=== PATIENT | male | born 1955 | race Caucasian/White ===

== ENCOUNTER 2025-03-07 07:20 | Observation (INO) | payer MEDICARE, SELFPAY ==
[2025-03-07] VITALS (16 sets, daily range): BP systolic 109–145; BP diastolic 62–81; PULSE 60–99; RESP 16–24; TEMP 36.5–37; O2SAT 94–100; BMI 26.5; BMI 26.6
--- NOTE | 2025-03-07 07:33 | EDS_ITS ---
HPI History of Present Illness Chief Complaint: Shortness of Breath Detail of Chief Complaint: Shortness of breath Informant: patient Narrative Narrative: Patient presents to the emergency department complaint of shortness of breath that started 4 days ago. Patient denies chest pain. He states that he is a heart patient and has multiple stents had multiple heart attacks. Patient also has history of COPD. He continues to smoke. Denies fever or chills or sweats. Patient has had intermittent trips to [place] where he is from by car which is about 4 hours away. Patient does not wear home O2. He is on Plavix and aspirin. No history of PE. He has a pacer and defibrillator that was replaced February 10. [facility] Medical History (Updated 03/07/25 @ 10:[address] Ronny Hackett DO) Cardiac defibrillator in place High blood cholesterol CHF (congestive heart failure) Allergy/AdvReac Type Severity Reaction Status Date / Time meperidine (From Demerol) AdvReac hallucinati Verified 03/07/25 07:22 ons propoxyphene (From Darvon) AdvReac hallucinati Verified 03/07/25 07:22 ons Family History (Updated 03/07/25 @ 10:[address] Artis Sanchez MD) Other Hypertension Family History no significant family his Surgical History (Updated 03/07/25 @ 07:37 by Ayana Valdivia) History of open heart surgery Hx of heart artery stent Social History Smoking Status: Light Smoker (<10/day) ROS ROS ED Review of Systems ROS Unobtainable: other Constitutional Constitutional ED: Reports lethargy; Denies chills, fever(s), sweats or weight loss Eyes Eyes: Denies blurry vision, change in vision or diplopia ENT ENT ED: Denies rhinorrhea or sore throat Cardiovascular Cardiovascular: Denies chest pain, orthopnea or racing heartbeat Respiratory/Chest Respiratory/Chest: Reports dyspnea and dyspnea on exertion; Denies cough, orthopnea or sputum Gastrointestinal Gastrointestinal: Denies abdominal pain, diarrhea, nausea or vomiting Genitourinary Genitourinary ED: Denies dysuria, hematuria or urinary frequency Musculoskeletal Musculoskeletal: Denies arthralgias, back pain, myalgias or neck pain Integumentary Denies abscess, Abrasions or rash Neurologic Neurologic: Denies headache(s) or weakness Psychiatric Psychiatric: Denies anxiety, depression or suicidal thoughts Endocrine Endocrinology: Denies polydipsia, polyphagia or polyuria Hematologic/Lymphatic Hematologic/Lymphatic: Denies easy bleeding, easy bruising or lymphadenopathy Allergic/Immunologic Allergic/Immunologic ED: Denies mouth swelling, tongue swelling or urticaria EXAM Physical Exam Const Vital Signs: 03/07/25 07:20 03/07/25 07:22 03/07/25 07:31 Temperature 98.2 F 98.2 F Temperature Source Oral Oral Pulse Rate 80 99 Respiratory Rate 20 H 24 H Respiratory Effort Short of Breath Blood Pressure 109/67 145/70 H Blood Pressure Mean 81 95 Pulse Ox 100 100 Oxygen Delivery Method Room Air Room Air Room Air 03/07/25 07:33 03/07/25 07:40 03/07/25 08:22 Temperature 98.2 F Temperature Source Oral Pulse Rate 70 76 Respiratory Rate 16 17 Respiratory Effort Blood Pressure 110/68 Blood Pressure Mean 82 Pulse Ox 100 Oxygen Delivery Method Room Air Room Air 03/07/25 09:00 Temperature 98 F Temperature Source Oral Pulse Rate 83 Respiratory Rate 19 H Respiratory Effort Blood Pressure 129/71 H Blood Pressure Mean 90 Pulse Ox 99 Oxygen Delivery Method Room Air Positive well nourished and well developed General Appearance ED: well developed and NAD HEENT Reports TM's clear and moist mucous membranes normocephalic and atraumatic; Negative for trauma or tenderness Tympanic Membrane ED: Yes TM's clear Eyes PERRL and EOMs intact bilaterally General Eye ED: Negative for pale conjunctiva or scleral icterus Neck no lymphadenopathy, supple and no JVD General: Negative for tenderness Chest Wall inspection of chest normal and palpation of chest normal Chest: Negative for tenderness Resp normal respiratory effort and No clear to auscultation bilaterally Resp Narrative: No conversational dyspnea. No accessory muscle use or retractions. Faint expiratory wheezes bilaterally. Effort and Inspection: Negative for respiratory distress or pain with movement Auscultation: wheezes; Negative for rhonchi or diminished lung sounds Cardio regular rate, regular rhythm, S1 normal heart sound, S2 normal heart sound and no murmurs Peripheral Pulses: pulses 2+ throughout GI normal to inspection, nondistended, normoactive bowel sounds, soft to palpation, non-tender, non-distended and no masses Back/Spine no CVA tenderness and no thoracic nor lumbar tenderness Extremity normal to inspection General Extremety ED: Negative for edema General Extremity: Negative for edema Neuro oriented x3, CN's II-XII intact bilaterally, no sensory deficits noted and gait normal Sensorium / Orientation: awake, alert, oriented to person, oriented to place and oriented to time Motor Exam: strength 5/5 throughout and strength abnormal Psych mental status grossly normal Skin no rashes or lesions noted and no wounds MDM MDM MDM Narrative Medical decision making narrative: Patient presents to the emergency department with complaint of exertional dyspnea x 4 days. He has history of COPD and history of coronary artery disease. In the differential would be COPD exacerbation versus less likely infectious etiology such as pneumonia. Also no differential would be acute coronary syndrome versus PE. CBC with differential slightly elevated white count 11.6 with hemoglobin 9.0 and platelet count of 247. Chemistries unremarkable. BUN 41 and creatinine 1.93. Troponin was 21. BT [employer] was 865. 1 view chest x-ray ordered however I am unable to visualize images as the PACS system is down and receiving reports from radiology. Lab Data Attestation: I reviewed the patient's lab results. Labs: Laboratory Results - last 24 hr 03/07/25 03/07/25 03/07/25 07:40 07:40 07:40 WBC 11.6 H RBC 2.65 L Hgb 9.0 L Hct 26.6 L MCV 100.4 H MCH 34.0 H MCHC 33.8 RDW Std Deviation 47.6 H RDW Coeff of Tab 13.4 Plt Count 247 MPV 10.0 Immature Gran % (Auto) 1.900 H Neut % (Auto) 64.7 Lymph % (Auto) 19.3 [place] % (Auto) 10.0 Eos % (Auto) 3.4 Baso % (Auto) 0.7 Absolute Neuts (auto) 7.5 Absolute Lymphs (auto) 2.24 Nucleated RBC % 0.4 D-Dimer Quant (PE/DVT) 0.53 H* Sodium 134 Potassium 4.5 Chloride 102 Carbon Dioxide 21.6 Anion Gap 10 BUN 41 H Creatinine 1.93 H Est GFR (MDRD) Non-Af 37 L BUN/Creatinine Ratio 21.2 H Glucose 122 H Calcium 8.8 Troponin T High Sens Cancelled 21 NT pro BNP II Cancelled 865 EKG Initial EKG: Attestation: I personally reviewed and interpreted this EKG as follows: Comments: Sinus rhythm with rate of [address] changes Prior EKG tracings: not available for review Discharge Plan Triage Chief Complaint: Shortness of Breath ED Provider: Ronny Hackett Dx/Rx/DC Orders Clinical Impression: COPD exacerbation, Hypoxemia, Exertional dyspnea Primary Care Provider: KHOA DOLL Referrals: Town Doctor,Out of [Non-Staff] - Print Language: Lithuanian Disposition Disposition: Acute Care Hospital [facility]
--- NOTE | 2025-03-07 07:33 | EKG12_ITS ---
Test Reason : SOB Blood Pressure : */* mmHG Vent. Rate : 69 BPM Atrial Rate : 69 BPM P-R Int : 148 ms QRS Dur : 132 ms QT Int : 390 ms P-R-T Axes : 31 -39 153 degrees QTcB Int : 417 ms Normal sinus rhythm with A sensed V paced rhythm Abnormal ECG Confirmed by Mitul Mejaí ([id number]), online editor JAIRO OLEARY ([id number]) on 03/08/2025 11:24:17 AM Referred By: Confirmed By: Mitul Mejía
--- NOTE | 2025-03-07 07:38 | ED.RN ---
87% ambulating, patient severely SOB
[2025-03-07] MEDS: MethylPREDNISolone 125 MG/2 ML Vial IV (07:41)
[2025-03-07] MEDS: Ipratropium/Albuterol Sulfate 3 ML AMPUL.NEB INHALATION ×4 (07:41→19:05)
[2025-03-07] MEDS: Albuterol 2.5 MG/3 ML VIAL.NEB. INHALATION (07:41)
[2025-03-07 07:54] LABS: Absolute Lymphocyte Count 2.24 X10^3/uL (0.83-4.51); Absolute Neutrophil Count 7.5 X10^3/uL (2.0-7.7); Basophil# 0.08 X10^3/uL; Basophil% 0.7 % (0-1); Eosinophils% 3.4 % (0-5); Hematocrit 26.6 % (40-54); Lymphocyte # 2.24 X10^3/ul (0.83-4.51); Lymphocyte % 19.3 % (19-41); Mean Corp Hgb Conc 33.8 g/dL (32-36); Mean Corpuscular Volume 100.4 fL (80-94); Monocyte# 1.16 X10^3/uL; NRBC Flagged by Analyzer 0.4 % (0-5); Neutrophil # 7.51 X10^3/uL (2.7-7.7); Neutrophil % 64.7 % (47-70); Platelet Count 247 K/mm3 (150-450); RBC Distribution Width CV 13.4 % (11.6-14.6); RBC Distribution Width SD 47.6 fl (35.1-43.9); Red Blood Count 2.65 M/mm3 (4.6-6.2); White Blood Count 11.6 K/mm3 (4.4-11.0)
--- NOTE | 2025-03-07 08:05 | RAD_ITS ---
PROCEDURE: CHEST 1 VIEW (PORTABLE) 03/07/2025 REASON FOR EXAM: DYSPNEA. SOB X4 DAYS TECHNIQUE: Frontal view of the chest. COMPARISON: None FINDINGS: Hardware: Sternotomy wires are present. A cardiac pacemaker device is identified in the left pectoral region with intact leads in satisfactory position. Cardiac leads overlie the chest. Vascular clips are seen. Heart: Cardiac and mediastinal contours are stable. Arteriosclerotic vascular disease of the aorta is noted. Lungs: There are linear densities seen in the lung bases bilaterally most likely representing atelectasis or parenchymal scarring. There are no pneumonic infiltrates, pleural effusions or consolidative process is seen in either lung. Bones: The bones are unremarkable. RAD/Chest 1 View (Portable) IMPRESSION: There appears to be some parenchymal scarring or atelectasis in the lung bases bilaterally. Arteriosclerotic vascular disease of the aorta. Reading Location: [id number]
[2025-03-07 08:10] LABS: D-Dimer Quantitative (DVT/PE) 0.53 FEU/ug/m (0.27-0.49)
[2025-03-07 08:19] LABS: Anion Gap 10 (5-15); BUN 41 mg/dL (4-19); BUN/Creat Ratio 21.2 RATIO (10-20); Calcium,Total 8.8 mg/dL (7.6-11.0); Carbon Dioxide 21.6 mmol/L (21.0-32.0); Chloride 102 mmol/L (98-108); Creatinine, Serum 1.93 mg/dL (0.70-1.20); EST Glomerular Filtration Rate 37 (>60); Glucose 122 mg/dL (70-99); Potassium 4.5 mmol/L (3.3-5.1); Sodium Level 134 mmol/L (133-145)
[2025-03-07 08:56] LABS: Pro- Brain NATRIURETIC PEPTIDE 865 pg/mL (<=900); Troponin T High Sensitivity 21 ng/L (<=22)
--- NOTE | 2025-03-07 10:05 | PCM.HP.STD ---
HPI - General General Date of Admission: 03/07/25 HPI Narrative ELEAZAR DE LA TORRE, is a 69 M who presents to the hospital 4 days of shortness of breath. He lives in [place] but visits the area couple times a year. This the first time he is presented to this hospital. In the ER he was found to be short of breath but not hypoxic, he was heavily wheezing and dyspneic so he was given breathing treatments and steroids which did improve his symptoms. He was ambulated initially and was found to be 87% on room air and I was giving a breathing treatment and ambulated again and was 90% on room air however he became severely tachycardic and dyspneic at that time. He does have a slight elevation in his white count but nothing concerning for pneumonia as he is afebrile. Chest x-ray is pending however we are having difficulty viewing the image, report does not indicate any signs of pneumonia. He states that he only uses his Trelegy once a week and states that that he did not realize that he was supposed to be using it every day because it makes him feel funny at times though when he does use it he breathes great and has no issues. He was also unaware that he was supposed to be using his albuterol inhaler whenever he was feeling short of breath so essentially he has not been treating his COPD. [facility] Medical History (Updated 03/07/25 @ 11:37 by Summer Massey) COPD (chronic obstructive pulmonary disease) Cardiac defibrillator in place High blood cholesterol CHF (congestive heart failure) Home Medications ?Medication ?Instructions ?Recorded ?Last Taken ?Type albuterol sulfate 90 mcg/actuation 2 puff inhalation Q4H PRN sob 03/07/25 Unknown History aerosol inhaler aspirin 81 mg capsule 81 mg PO DAILY 03/07/25 03/06/25 History clopidogrel 75 mg tablet 75 mg PO DAILY 03/07/25 03/06/25 History empagliflozin 10 mg tablet 10 mg PO DAILY 03/07/25 03/07/25 History (Jardiance) fluticasone fur. 200 mcg-umeclid 1 inh inhalation DAILY 03/07/25 03/02/25 History 62.5 mcg-vilant 25 mcg inhalat.powder (Trelegy Ellipta) furosemide 20 mg tablet 20 mg PO DAILY PRN swelling 03/07/25 Unknown History metoprolol succinate 25 mg 25 mg PO BID 03/07/25 03/06/25 History tablet,extended release 24 hr ranolazine 1,000 mg 1,000 mg PO BID cad 03/07/25 03/06/25 History tablet,extended release,12 hr rosuvastatin 20 mg tablet 20 mg PO DAILY cholesterol 03/07/25 03/05/25 History sacubitril 24 mg-valsartan 26 mg 1 tab PO BID 03/07/25 Unknown History tablet (Entresto) spironolactone 25 mg tablet 12.5 mg PO DAILY swelling 03/07/25 03/06/25 History Allergy/AdvReac Type Severity Reaction Status Date / Time meperidine (From Demerol) AdvReac hallucinati Verified 03/07/25 07:22 ons propoxyphene (From Darvon) AdvReac hallucinati Verified 03/07/25 07:22 ons Family History Other Hypertension Family History no significant family his Surgical History History of open heart surgery Hx of heart artery stent Social History Smoking Status: Former smoker ROS Constitutional Constitutional: Denies chills, fatigue, fever(s) or malaise Eyes Eyes: Denies blurry vision ENT HEENT: Denies headache(s) or nasal discharge Cardiovascular Cardiovascular: Reports dyspnea on exertion; Denies chest pain or syncope Respiratory/Chest Respiratory/Chest: Reports shortness of breath at rest; Denies cough or shortness of breath with exertion Gastrointestinal Gastrointestinal: Denies constipation, diarrhea, nausea or vomiting Genitourinary Genitourinary: Denies dysuria Neurologic Neurologic: Denies focal weakness, numbness or tremor(s) Psychiatric Psychiatric: Denies anxiety or depression Vital Signs Vital Signs Vital Signs: 03/07/25 07:20 03/07/25 07:22 03/07/25 07:31 Temperature 98.2 F 98.2 F Temperature Source Oral Oral Pulse Rate 80 99 Respiratory Rate 20 H 24 H Respiratory Effort Short of Breath Blood Pressure 109/67 145/70 H Blood Pressure Mean 81 95 Pulse Ox 100 100 Oxygen Delivery Method Room Air Room Air Room Air 03/07/25 07:33 03/07/25 07:40 03/07/25 08:22 Temperature 98.2 F Temperature Source Oral Pulse Rate 70 76 Respiratory Rate 16 17 Respiratory Effort Blood Pressure 110/68 Blood Pressure Mean 82 Pulse Ox 100 Oxygen Delivery Method Room Air Room Air 03/07/25 09:00 Temperature 98 F Temperature Source Oral Pulse Rate 83 Respiratory Rate 19 H Respiratory Effort Blood Pressure 129/71 H Blood Pressure Mean 90 Pulse Ox 99 Oxygen Delivery Method Room Air Physical Exam Narrative General: Alert, Oriented x3, Cooperative, No apparent distress HEENT: Atraumatic, PERRLA, EOMI, Normocephalic Oral: Moist Mucosa Neck: Supple, No JVD Lungs: Diminished, Normal air movement, No rhonchi, scattered wheeze, No rales Cardiovascular: Regular rate, Regular Rhythm, Normal S1, Normal S2, No murmurs Abdomen: Soft, Non Tender, Non-Distended, No Hepato-splenomegaly Extremities: Trace edema, Capillary Refill Less than 3 Seconds Skin: No rashes, No breakdown Musculoskeletal: No Tenderness to Palpation of Joints or Extremities Neurological: No focal neurological deficits, Motor Exam 5/5 strength throughout, Sensory exam intact to light touch and pain Psych/Mental Status: Normal Affect, Appropriate Results Lab / Micro Data 03/07/25 07:40 03/07/25 07:40 Labs: Laboratory Results - last 24 hr 03/07/25 07:40: WBC 11.6 H, RBC 2.65 L, Hgb 9.0 L, Hct 26.6 L, MCV 100.4 H, MCH 34.0 H, MCHC 33.8, RDW Std Deviation 47.6 H, RDW Coeff of Tab 13.4, Plt Count 247, MPV 10.0, Immature Gran % (Auto) 1.900 H, Neut % (Auto) 64.7, Lymph % (Auto) 19.3, [place] % (Auto) 10.0, Eos % (Auto) 3.4, Baso % (Auto) 0.7, Absolute Neuts (auto) 7.5, Absolute Lymphs (auto) 2.24, Nucleated RBC % 0.4, D-Dimer Quant (PE/DVT) 0.53 H*, Sodium 134, Potassium 4.5, Chloride 102, Carbon Dioxide 21.6, Anion Gap 10, BUN 41 H, Creatinine 1.93 H, Est GFR (MDRD) Non-Af 37 L, BUN/Creatinine Ratio 21.2 H, Glucose 122 H, Calcium 8.8, Troponin T High Sens Cancelled 03/07/25 07:40: Troponin T High Sens 21, NT pro BNP II Cancelled 03/07/25 07:40: NT pro BNP II 865 Micro: Microbiology 03/07/25 07:40 Mucosa - Nose SARS-CoV-2, Influenza & RSV (PCR) - Final Assessment & Plan Assessment/Plan (1) COPD exacerbation: PLAN: Plan 1. COPD exacerbation ? He is not hypoxic or requiring oxygen at this time ? Will continue with daily prednisone ? Continue with DuoNebs ? Will obtain a sputum culture if possible ? Chest x-ray is negative for pneumonia and he denies sputum production or fevers ? COVID, flu, RSV are negative ? Will repeat ambulatory pulse ox tomorrow 2. Essential HTN/HLD/CAD status post stents and CABG/chronic systolic CHF ? Blood pressures are stable ? Can resume his home medications ? Will monitor and make adjustments as necessary ? Will continue with his Jardiance for his heart failure ? He does have a pacemaker defibrillator placed, and his primary care is in [facility] DVT: Ambulation 75 minutes was spent on direct patient care, including documentation as well as chart review and collaboration with colleagues Charges/Coding Visit Charges Inpatient E&M: 98991 Init Hosp L3
[2025-03-07 10:18] LABS: Troponin T High Sens 2 HR 19 ng/L (<=22)
[2025-03-07 13:22] LABS: Troponin T High Sens 4 HR 20 ng/L (<=22)
[2025-03-07 13:47] LABS: Ferritin 31 ng/mL (37-417); Iron 45 ug/dL (65-175); Iron Binding Capacity,Total 326 ug/dL (250-450); Iron Binding Capacity,Unsat 281 ug/dL (228-428)
[2025-03-07] MEDS: 0.9% Saline Lock 10 ML Syringe IV (22:23)
[2025-03-07] MEDS: Metoprolol(XL)Succ 25 MG Tablet PO (22:24)
[2025-03-07] MEDS: SACUBITRIL/VALSARTAN 24/26 MG TABLET 1 EACH PO (22:24)
[2025-03-07] MEDS: Ranolazine 500 MG Tablet 1000 MG PO (22:24)
[2025-03-08] VITALS (7 sets, daily range): BP systolic 106–120; BP diastolic 58–67; PULSE 63–77; RESP 16–20; TEMP 36.5–36.6; O2SAT 90–100
[2025-03-08 05:41] LABS: Absolute Lymphocyte Count 1.43 X10^3/uL (0.83-4.51); Absolute Neutrophil Count 13.3 X10^3/uL (2.0-7.7); Basophil# 0.02 X10^3/uL; Basophil% 0.1 % (0-1); Hematocrit 21.8 % (40-54); Hemoglobin 7.3 g/dL (13.0-16.5); Lymphocyte # 1.43 X10^3/ul (0.83-4.51); Lymphocyte % 8.9 % (19-41); Mean Corp Hgb Conc 33.5 g/dL (32-36); Mean Corpuscular Volume 101.4 fL (80-94); Mean Platelet Vol. 10.3 fl (6.2-12.0); Monocyte% 6.8 % (0-10); NRBC Flagged by Analyzer 0.3 % (0-5); Neutrophil % 82.9 % (47-70); Platelet Count 206 K/mm3 (150-450); RBC Distribution Width SD 48.9 fl (35.1-43.9); Red Blood Count 2.15 M/mm3 (4.6-6.2); White Blood Count 16.1 K/mm3 (4.4-11.0)
[2025-03-08 07:02] LABS: Anion Gap 14 (5-15); BUN 38 mg/dL (4-19); BUN/Creat Ratio 21.7 RATIO (10-20); Calcium,Total 8.5 mg/dL (7.6-11.0); Carbon Dioxide 18.3 mmol/L (21.0-32.0); Chloride 103 mmol/L (98-108); Creatinine, Serum 1.77 mg/dL (0.70-1.20); EST Glomerular Filtration Rate 41 (>60); Estimated Creatinine Clearance 36.05 ml/min (50-250); Glucose 172 mg/dL (70-99); Potassium 4.6 mmol/L (3.3-5.1); Sodium Level 136 mmol/L (133-145)
[2025-03-08] MEDS: Ipratropium/Albuterol Sulfate 3 ML AMPUL.NEB INHALATION ×2 (07:22→11:52)
[2025-03-08] MEDS: Metoprolol(XL)Succ 25 MG Tablet PO (09:01)
[2025-03-08] MEDS: SACUBITRIL/VALSARTAN 24/26 MG TABLET 1 EACH PO (09:01)
[2025-03-08] MEDS: Aspirin 81 MG TAB.CHEW PO (09:01)
[2025-03-08] MEDS: predniSONE 20 MG Tablet 40 MG PO (09:01)
[2025-03-08] MEDS: Ranolazine 500 MG Tablet 1000 MG PO (09:02)
[2025-03-08] MEDS: Atorvastatin Calcium 40 MG Tablet PO (09:02)
[2025-03-08] MEDS: Empagliflozin 10 MG Tablet PO (09:02)
[2025-03-08] MEDS: Spironolactone 25 MG Tablet 12.5 MG PO (09:02)
[2025-03-08] MEDS: 0.9% Saline Lock 10 ML Syringe IV (09:09)
[2025-03-08] MEDS: Clopidogrel Bisulfate 75 MG Tablet PO (09:09)
[2025-03-08] MEDS: Polyethylene Glycol 3350 17 GM PACKET PO (10:18)
--- NOTE | 2025-03-08 11:13 | CASEMGMT ---
Met with patient to complete BUSTOS form. BUSTOS form explained to patient who voiced understanding and signed form. Original form placed in pt?s chart and copy provided to patient. Phoebe Gomez, Discharge Planning Asst
[2025-03-08 11:19] LABS: Hemoglobin 8.3 g/dL (13.0-16.5)
--- NOTE | 2025-03-08 11:54 | PCM.DC ---
Discharge Instructions Diet Discharge Diet: Low fat / Low cholesterol DC O2, CPAP, BIPAP needs Home O2 Discharge instructions: No Dressing / Incision Discharge Activity: Return to Normal Activity Dressing / Incision Call your doctor if you observe: Fever of 101 or Higher, Shortness of breath, Dizziness, Fainting spells, Swelling in the ankles, Chest pain and Increased palpitations (irregular heartbeat) Follow Up Care Test Results: Test results from this visit will be discussed in further detail at your follow-up appointment, if applicable. Discharge Plan Admission Admit Date/Time: 03/07/25 09:57 Attending Provider: Artis Sanchez Primary Care Provider: KHOA DOLL Discharge Orders/Prescriptions Prescriptions: New prednisone 20 mg Tablet 40 mg PO BREAKFAST 7 Days Qty: 14 0RF pantoprazole 40 mg Tablet,Delayed Release (Dr/Ec) 40 mg PO DAILY 30 Days Qty: 30 0RF Continued Trelegy Ellipta 200-62.5-25 mcg blister with device 1 inh inhalation DAILY Patient Comments: pt supposed to take once a day but only is compliant once a week metoprolol succinate 25 mg tablet extended release 24 hr 25 mg PO BID albuterol sulfate 90 mcg/actuation HFA aerosol inhaler 2 puff inhalation Q4H PRN (Reason: sob) Jardiance 10 mg tablet 10 mg PO DAILY furosemide 20 mg tablet 20 mg PO DAILY PRN (Reason: swelling ) clopidogrel 75 mg tablet 75 mg PO DAILY sacubitril-valsartan [Entresto] 24-26 mg tablet 1 tab PO BID rosuvastatin 20 mg tablet 20 mg PO DAILY ranolazine 1,000 mg tablet extended release 12 hr 1,000 mg PO BID spironolactone 25 mg tablet 12.5 mg PO DAILY aspirin 81 mg capsule 81 mg PO DAILY Referrals / Follow Up: KHOA DOLL [Other] - Within 3 Months Town Doctor,Out of [Non-Staff] - Disposition Disposition (needs filled in before D/C Order can be placed): Home, Self Care
--- NOTE | 2025-03-08 12:27 | CASEMGMT ---
Patient has order for discharge. RN CM in to discuss needs at discharge. Patient does not have PCP, list provided with [facility]. Patient denies further needs or help at discharge. Patient had no further questions or concern.
[2025-03-08] MEDS: Pantoprazole Sodium 40 MG Tablet PO (12:29)
--- NOTE | 2025-03-08 12:38 | PHA.DC.MC.R ---
Pharmacy [facility] Pharm[facility] Service has performed discharge medication reconciliation and counseling for this patient. The patient's discharge medication list was reviewed for discrepancies and discrepancies were resolved. The patient was counseled on the following discharge medications and changes in medications for homegoing were reviewed. The Reason for Use, instructions for use, and potential side effects were reviewed for all new medications. The patient's questions regarding all of their medications were answered. 1. Prednisone 40 mg PO daily x 7 days. 2. Pantoprazole 40 mg PO daily. The patient was able to verbally demonstrate an understanding of their discharge medications. The patient was counselled on new medications by registered pharmacy technician Tavo. Medications at Discharge Home Medications albuterol sulfate 90 mcg/actuation aerosol inhaler 2 puff inhalation Q4H PRN sob 03/07/25 aspirin 81 mg capsule 81 mg PO DAILY 03/07/25 clopidogrel 75 mg tablet 75 mg PO DAILY 03/07/25 empagliflozin 10 mg tablet (Jardiance) 10 mg PO DAILY 03/07/25 fluticasone fur. 200 mcg-umeclid 62.5 mcg-vilant 25 mcg inhalat.powder (Trelegy Ellipta) 1 inh inhalation DAILY 03/07/25 furosemide 20 mg tablet 20 mg PO DAILY PRN swelling 03/07/25 metoprolol succinate 25 mg tablet,extended release 24 hr 25 mg PO BID 03/07/25 ranolazine 1,000 mg tablet,extended release,12 hr 1,000 mg PO BID cad 03/07/25 rosuvastatin 20 mg tablet 20 mg PO DAILY cholesterol 03/07/25 sacubitril 24 mg-valsartan 26 mg tablet (Entresto) 1 tab PO BID 03/07/25 spironolactone 25 mg tablet 12.5 mg PO DAILY swelling 03/07/25 pantoprazole 40 mg tablet,delayed release 40 mg PO DAILY 30 days #30 tabs 03/08/25 prednisone 20 mg tablet 40 mg (2 x 20 mg) PO BREAKFAST 7 days #14 tabs 03/08/25
--- NOTE | 2025-03-08 13:16 | DS.PCM_ITS ---
Providers Date of Admission: 03/07/25 Primary Care Physician: KHOA DOLL Reason For Visit: COPD Diagnosis Discharge Diagnosis (1) COPD exacerbation: Status: Chronic Code(s): J44.1 - Chronic obstructive pulmonary disease with (acute) exacerbation Medications at Discharge Home Medications albuterol sulfate 90 mcg/actuation aerosol inhaler 2 puff inhalation Q4H PRN sob 03/07/25 aspirin 81 mg capsule 81 mg PO DAILY 03/07/25 clopidogrel 75 mg tablet 75 mg PO DAILY 03/07/25 empagliflozin 10 mg tablet (Jardiance) 10 mg PO DAILY 03/07/25 fluticasone fur. 200 mcg-umeclid 62.5 mcg-vilant 25 mcg inhalat.powder (Trelegy Ellipta) 1 inh inhalation DAILY 03/07/25 furosemide 20 mg tablet 20 mg PO DAILY PRN swelling 03/07/25 metoprolol succinate 25 mg tablet,extended release 24 hr 25 mg PO BID 03/07/25 ranolazine 1,000 mg tablet,extended release,12 hr 1,000 mg PO BID cad 03/07/25 rosuvastatin 20 mg tablet 20 mg PO DAILY cholesterol 03/07/25 sacubitril 24 mg-valsartan 26 mg tablet (Entresto) 1 tab PO BID 03/07/25 spironolactone 25 mg tablet 12.5 mg PO DAILY swelling 03/07/25 pantoprazole 40 mg tablet,delayed release 40 mg PO DAILY 30 days #30 tabs 03/08/25 prednisone 20 mg tablet 40 mg (2 x 20 mg) PO BREAKFAST 7 days #14 tabs 03/08/25 Hospital Course Operations None Procedures None Summary of Care Provided Minutes Spent on Discharge: 34 Hospital Course: Per HPI: ELEAZAR DE LA TORRE, is a 69 M who presents to the hospital 4 days of shortness of breath. He lives in [place] but visits the area couple times a year. This the first time he is presented to this hospital. In the ER he was found to be short of breath but not hypoxic, he was heavily wheezing and dyspneic so he was given breathing treatments and steroids which did improve his symptoms. He was ambulated initially and was found to be 87% on room air and I was giving a breathing treatment and ambulated again and was 90% on room air however he became severely tachycardic and dyspneic at that time. He does have a slight elevation in his white count but nothing concerning for pneumonia as he is afebrile. Chest x-ray is pending however we are having difficulty viewing the image, report does not indicate any signs of pneumonia. He states that he only uses his Trelegy once a week and states that that he did not realize that he was supposed to be using it every day because it makes him feel funny at times though when he does use it he breathes great and has no issues. He was also unaware that he was supposed to be using his albuterol inhaler whenever he was feeling short of breath so essentially he has not been treating his COPD. Hospital Course: 1. COPD exacerbation?69-year-old male whose main residence is in [place] but he visits his sister periodically throughout the year presented to the hospital with increased shortness of breath. He was transiently hypoxic in the ER but did not demonstrate need for oxygen therapy after admission. He did have an amatory pulse ox today which did not require any oxygen. He is feeling much better and is breathing much better. Part of his issue is noncompliance as because he did not understand fully the mechanism of COPD and the point of his Trelegy and albuterol inhalers. He states that he will start using his Trelegy every day and have his albuterol on hand whenever he is outside of the home with increased activity. Chest x-ray was negative for pneumonia on admission and he was not providing any sputum cultures, he was continued on DuoNebs and steroids. Given his rapid improvement we will continue with steroids for about a week. Viral panel was also negative. I discussed with him plan for discharge today and he expressed understanding and was amenable to going home and would like to go home today. 2. Macrocytic anemia?unclear as to chronicity, he was admitted with a hemoglobin of 9 and this morning he dropped to 7.3 though he denies any bright red blood per rectum though he does endorse some dark stools at times. He denies any hematemesis or abdominal pain. Recheck 4 hours later demonstrated hemoglobin of 8.3 because we do not have any previous labs on not sure as to where his baseline hemoglobin is. I do recommend outpatient follow-up and repeat lab work to monitor his hemoglobin and this was discussed with him. In the meantime we will provide him with Protonix 40 mg daily. 3. Essential hypertension, hyperlipidemia, coronary artery disease status post stents and CABG, chronic systolic CHF all chronic medical conditions which complicate his care. His home medications were continued where appropriate Physical Exam Narrative General: Alert, Oriented x3, Cooperative, No apparent distress HEENT: Atraumatic, PERRLA, EOMI, Normocephalic Oral: Moist Mucosa Neck: Supple, No JVD Lungs: Diminished, Normal air movement, No rhonchi, scattered wheeze, No rales Cardiovascular: Regular rate, Regular Rhythm, Normal S1, Normal S2, No murmurs Abdomen: Soft, Non Tender, Non-Distended, No Hepato-splenomegaly Extremities: Trace edema, Capillary Refill Less than 3 Seconds Skin: No rashes, No breakdown Musculoskeletal: No Tenderness to Palpation of Joints or Extremities Neurological: No focal neurological deficits, Motor Exam 5/5 strength throughout, Sensory exam intact to light touch and pain Psych/Mental Status: Normal Affect, Appropriate Weight / BMI Weight Weight: 165 lb Body Mass Index (BMI) 26.6 ABG / Lab / Microbiology Data 03/08/25 11:00 03/08/25 05:11 Laboratory: Laboratory Results - last 24 hr 03/07/25 12:33: Iron 45 L, TIBC 326, Iron Saturation 14.0, Unsaturated IBC 281, Ferritin 31 L, Troponin T Hi Sens 4Hr 20 03/08/25 05:11: WBC 16.1 H, RBC 2.15 L, Hgb 7.3 L, Hct 21.8 L, MCV 101.4 H, MCH 34.0 H, MCHC 33.5, RDW Std Deviation 48.9 H, RDW Coeff of Tab 14.0, Plt Count 206, MPV 10.3, Immature Gran % (Auto) 1.300 H, Neut % (Auto) 82.9 H, Lymph % (Auto) 8.9 L, [place] % (Auto) 6.8, Eos % (Auto) 0.0, Baso % (Auto) 0.1, Absolute Neuts (auto) 13.3 H, Absolute Lymphs (auto) 1.43, Nucleated RBC % 0.3, Sodium 136, Potassium 4.6, Chloride 103, Carbon Dioxide 18.3 L, Anion Gap 14, BUN 38 H, Creatinine 1.77 H, Estim Creat Clear Calc 36.05 L, Est GFR (MDRD) Non-Af 41 L, B UN/Creatinine Ratio 21.7 H, Glucose 172 H, Calcium 8.5 03/08/25 11:00: Hgb 8.3 L, Hct 25.0 L Microbiology: Microbiology 03/07/25 07:40 Mucosa - Nose SARS-CoV-2, Influenza & RSV (PCR) - Final D/C Instructions Discharge Diet: Low fat / Low cholesterol Call your doctor if you observe: Fever of 101 or Higher, Shortness of breath, Dizziness, Fainting spells, Swelling in the ankles, Chest pain and Increased palpitations (irregular heartbeat) DC O2, CPAP, BIPAP Needs Home O2 Discharge instructions: No Meaningful Use Info Meaningful Use Meaningful Use Diagnoses (Choose all that apply): None applicable Ischemic Stroke Statin Dosing Therapy Reference: STATIN DOSE THERAPY REFERENCE: * Patients > 75 years receive moderate or high dose statin therapy. * Patients 75 years or YOUNGER should receive HIGH intensity statin dose unless contraindicated. You will be required to document reason for non-treatment if statin daily dose does not meet guidelines. HIGH DOSE STATIN THERAPY DAILY Atorvastatin > than or = to 40 mg Rosuvastatin > than or = to 20 mg Amlodipine + Atorvastatin > than or = to 2.5/40 mg Ezetimibe + Simvastatin 10/80 mg Simvastatin 80mg Discharge Plan Admission Admit Date/Time: 03/07/25 09:57 Attending Provider: Artis Sanchez Primary Care Provider: KHOA DOLL Discharge Orders/Prescriptions Prescriptions: New prednisone 20 mg Tablet 40 mg PO BREAKFAST 7 Days Qty: 14 0RF pantoprazole 40 mg Tablet,Delayed Release (Dr/Ec) 40 mg PO DAILY 30 Days Qty: 30 0RF Continued Trelegy Ellipta 200-62.5-25 mcg blister with device 1 inh inhalation DAILY Patient Comments: pt supposed to take once a day but only is compliant once a week metoprolol succinate 25 mg tablet extended release 24 hr 25 mg PO BID albuterol sulfate 90 mcg/actuation HFA aerosol inhaler 2 puff inhalation Q4H PRN (Reason: sob) Jardiance 10 mg tablet 10 mg PO DAILY furosemide 20 mg tablet 20 mg PO DAILY PRN (Reason: swelling ) clopidogrel 75 mg tablet 75 mg PO DAILY sacubitril-valsartan [Entresto] 24-26 mg tablet 1 tab PO BID rosuvastatin 20 mg tablet 20 mg PO DAILY ranolazine 1,000 mg tablet extended release 12 hr 1,000 mg PO BID spironolactone 25 mg tablet 12.5 mg PO DAILY aspirin 81 mg capsule 81 mg PO DAILY Referrals / Follow Up: KHOA DOLL [Other] - Within 3 Months Town Doctor,Out of [Non-Staff] - Disposition Disposition (needs filled in before D/C Order can be placed): Home, Self Care Charges/Coding Visit Charges Inpatient E&M: 19453 Disch Hosp >30min
== END 2025-03-08 13:41 | disposition home or self-care (01) ==
LOC: ED 10:13 → ICU 10:26 → PCU 10:40
PROVIDERS: Admitting Provider Family Medicine; Emergency Provider Emergency Medicine; Visit Provider Family Medicine
DX: J44.1 Chronic obstructive pulmonary disease with (acute) exacerbation (principal); I11.0 Hypertensive heart disease with heart failure; I50.22 Chronic systolic (congestive) heart failure; R09.02 Hypoxemia; T48.6X6A Underdosing of antiasthmatics, initial encounter; Z91.148 Patient's other noncompliance with medication regimen for other reason; I25.10 Atherosclerotic heart disease of native coronary artery without angina pectoris; E78.00 Pure hypercholesterolemia, unspecified; D53.9 Nutritional anemia, unspecified; I25.2 Old myocardial infarction; F17.200 Nicotine dependence, unspecified, uncomplicated; Z11.52 Encounter for screening for COVID-19; Z79.82 Long term (current) use of aspirin; Z79.51 Long term (current) use of inhaled steroids; Z79.02 Long term (current) use of antithrombotics/antiplatelets; Z79.84 Long term (current) use of oral hypoglycemic drugs; Z79.899 Other long term (current) drug therapy; Z95.810 Presence of automatic (implantable) cardiac defibrillator; Z95.1 Presence of aortocoronary bypass graft; Z95.5 Presence of coronary angioplasty implant and graft
CPT/HCPCS: 36415; 71045; 80048; 82728; 83540; 83550; 83880; 84484; 85014; 85018; 85025; 85379; 87631; 93005; 94640; 94668; 96374; 99221; 99285; A4216; G0378